=== PATIENT | male | born 1955 | race Two or more races ===

== ENCOUNTER 2023-01-24 07:34 | Outpatient (CLI) | payer MEDICARE, OTHER | END 2023-01-24 23:59 | disposition home or self-care (01) | LOC: LAB 07:34 | PROVIDERS: ATTEND Dentist Oral and Maxillofacial Surgery | DX: Z01.812 Encounter for preprocedural laboratory examination (principal); Z20.822 Contact with and (suspected) exposure to COVID-19 | CPT/HCPCS: U0003; C9803 ==

== ENCOUNTER 2023-08-25 05:48 | Inpatient (IN) | payer MEDICARE, OTHER ==
[~2023-08-25] VITALS: Ht 182.9 cm; Wt 82.6 kg
[2023-08-25] MEDS ORDERED: VANCOMYCIN 1 GM VIAL ONE (06:57)
[2023-08-25] MEDS ORDERED: LIDOCAINE 2%-EPI 1:100,000 30 ML VIAL ONE (06:57)
[2023-08-25] MEDS ORDERED: dexaMETHasone SOD PHOSPHATE 10 MG/ML VIAL ONE (06:57)
[2023-08-25 07:08] VITALS: BP 135/69; TEMP 97.7; O2SAT 98
[2023-08-25] MEDS ORDERED: LIDOCAINE 2% JEL 5 ML TUBE ONE (07:13)
[2023-08-25] MEDS ORDERED: FENTANYL PF 100MCG/2ML AMPUL ONE (07:13)
[2023-08-25] MEDS ORDERED: FAMOTIDINE/PF INJ 20 MG/2 ML VIAL IV ONE (07:14)
[2023-08-25] MEDS ORDERED: ROCURONIUM BROMIDE 50 MG/5 ML ONE (07:14)
[2023-08-25] MEDS ORDERED: OXYMETAZOLINE HCL NASAL SPRAY 30 ML BOTTLE NS ONE (07:14)
[2023-08-25] MEDS ORDERED: HYDROMORPHONE 1 MG/1 ML DISP.SYRIN ONE (10:05)
[2023-08-25] MEDS ORDERED: DULA1.5P SQ (10:51)
[2023-08-25] MEDS ORDERED: LOSA100T31 PO (10:51)
[2023-08-25] MEDS ORDERED: OMEP40CA21 PO (10:51)
[2023-08-25] MEDS ORDERED: CLOP75TA15 PO (10:51)
[2023-08-25] MEDS ORDERED: ASPI-1169 PO (10:51)
[2023-08-25] MEDS ORDERED: AMLO-212 PO (10:51)
[2023-08-25] MEDS ORDERED: ROSU20TA32 PO (10:51)
[2023-08-25] MEDS ORDERED: TAMS-12 PO (10:51)
[2023-08-25] MEDS ORDERED: ERGO500093 PO (10:51)
[2023-08-25] MEDS ORDERED: DAPA10TA PO (10:51)
[2023-08-25] MEDS ORDERED: FENO48TA6 PO (10:51)
[2023-08-25] MEDS ORDERED: METO50TA16 PO (10:51)
[2023-08-25] MEDS ORDERED: METF-442 PO (10:51)
[2023-08-25] MEDS ORDERED: ESOM40CA52 PO (10:51)
[2023-08-25] MEDS ORDERED: IV NS 0.9% 1,000 ML IV PRN (11:00)
[2023-08-25] MEDS ORDERED: ACETAMINOPHEN 325 MG TABLET PO PRN (11:30)
[2023-08-25] MEDS ORDERED: ONDANSETRON HCL/PF 4 MG/2 ML VIAL IV PRN (11:30)
[2023-08-25] MEDS ORDERED: HYDROMORPHONE 1 MG/1 ML DISP.SYRIN IV PRN (11:30)
[2023-08-25 11:35] LABS: THYROID STIMULATING HORMONE 0.885 uIU/mL (0.358-3.74)
[2023-08-25] MEDS ORDERED: ERGOCALCIFEROL (VITAMIN D 2) 50,000 UNIT CAPSULE PO SCH (13:30)
[2023-08-25] MEDS ORDERED: DEXTROSE 50%-WATER 50 ML DISP.SYRIN IV PRN (15:30)
[2023-08-25] MEDS ORDERED: INSULIN REGULAR, HUMAN 100 UNIT/ML 3 ML VIAL SQ PRN (15:30)
[2023-08-25 16:00] VITALS: BP 135/73; TEMP 97.8; O2SAT 98
[2023-08-25] MEDS ORDERED: BLOOD SUGAR DIAGNOSTIC 1 EACH STRIP IN SCH (17:30)
[2023-08-25] MEDS: METOPROLOL TARTRATE 50 MG TABLET PO SCH (17:54)
[2023-08-25] MEDS ORDERED: ATORVASTATIN 40 MG TABLET PO SCH (18:00)
[2023-08-25 20:00] VITALS: BP 139/79; TEMP 97.6; O2SAT 98
[2023-08-25] MEDS: VANCOMYCIN 1 GM in IV D5W 250ml IV SCH (20:00)
[2023-08-26] MEDS ORDERED: PANTOPRAZOLE 40 MG TABLET.DR PO SCH (07:30)
[2023-08-26] MEDS ORDERED: Medication Not On Formulary EA (Omeprazole 40 MG) PO SCH (07:30)
[2023-08-26 08:00] VITALS: BP 145/70; TEMP 98; O2SAT 96
[2023-08-26] MEDS: VANCOMYCIN 1 GM in IV D5W 250ml IV SCH (08:13)
[2023-08-26 08:17] VITALS: BP 145/70
[2023-08-26] MEDS: METOPROLOL TARTRATE 50 MG TABLET PO SCH (08:17)
[2023-08-26] MEDS ORDERED: ASPIRIN 81 MG TAB.CHEW PO SCH (09:00)
[2023-08-26] MEDS ORDERED: METFORMIN 500 MG TABLET PO SCH (09:00)
[2023-08-26] MEDS ORDERED: CLOPIDOGREL BISULFATE 75 MG TABLET PO SCH (09:00)
[2023-08-26] MEDS ORDERED: Fenofibrate 48 MG TABLET PO SCH (09:00)
[2023-08-26] MEDS ORDERED: DAPAGLIFLOZIN PROPANEDIOL 5 MG TABLET PO SCH (09:00)
[2023-08-26] MEDS ORDERED: ERGOCALCIFEROL (VITAMIN D 2) 50,000 UNIT CAPSULE PO SCH (09:00)
[2023-08-26] MEDS ORDERED: AMLODIPINE BESYLATE 5 MG TABLET PO SCH (09:00)
[2023-08-26] MEDS ORDERED: LOSARTAN POTASSIUM 50 MG TABLET PO SCH (09:00)
[2023-08-26] MEDS ORDERED: TAMSULOSIN 0.4 MG CAP.SR.24H PO SCH (09:00)
== END 2023-08-26 11:00 | disposition home or self-care (01) | DRG 908 ==
LOC: DS 05:48 → MED 05:49
PROVIDERS: ADMIT Nurse Practitioner Family; ATTEND Nurse Practitioner Family
PROC: 0NPW04Z Removal of Internal Fixation Device from Facial Bone, Open Approach (ICD-10-PCS; principal; 2023-08-25)
PROC: 0NBV0ZX Excision of Left Mandible, Open Approach, Diagnostic (ICD-10-PCS; 2023-08-25)
PROC: 0NBR0ZX Excision of Maxilla, Open Approach, Diagnostic (ICD-10-PCS; 2023-08-25)
PROC: 0NSV04Z Reposition Left Mandible with Internal Fixation Device, Open Approach (ICD-10-PCS; 2023-08-25)
PROC: 0NSR04Z Reposition Maxilla with Internal Fixation Device, Open Approach (ICD-10-PCS; 2023-08-25)
PROC: 0NST04Z Reposition Right Mandible with Internal Fixation Device, Open Approach (ICD-10-PCS; 2023-08-25)
PROC: 0NBT0ZX Excision of Right Mandible, Open Approach, Diagnostic (ICD-10-PCS; 2023-08-25)
DX: T86.831 Bone graft failure (principal); S02.40CK Maxillary fracture, right side, subsequent encounter for fracture with nonunion; T84.7XXA Infection and inflammatory reaction due to other internal orthopedic prosthetic devices, implants and grafts, initial encounter; S02.40DK Maxillary fracture, left side, subsequent encounter for fracture with nonunion; S02.69XK Fracture of mandible of other specified site, subsequent encounter for fracture with nonunion; I10 Essential (primary) hypertension; E11.9 Type 2 diabetes mellitus without complications; Y83.8 Other surgical procedures as the cause of abnormal reaction of the patient, or of later complication, without mention of misadventure at the time of the procedure; Y92.009 Unspecified place in unspecified non-institutional (private) residence as the place of occurrence of the external cause; T18.0XXA Foreign body in mouth, initial encounter; I25.10 Atherosclerotic heart disease of native coronary artery without angina pectoris; M19.90 Unspecified osteoarthritis, unspecified site; E78.5 Hyperlipidemia, unspecified; Z95.1 Presence of aortocoronary bypass graft; Z87.891 Personal history of nicotine dependence; D16.5 Benign neoplasm of lower jaw bone
CPT/HCPCS: 36415; 82962-TC; 84439-TC; 84443-TC; 87081-TC; 93307-TC; A4223; C1713; G0378; J1100; J1170; J1815; J2405; J2704; J2765; J3010; J3370; J3490; J7030; J7060